=== PATIENT | female | born 1955 | race Caucasian/White ===

== ENCOUNTER 2021-07-15 07:11 | Day surgery (SDC) | payer SELFPAY ==
[~2021-07-15 07:11] MED LIST: Lactated Ringers 1,000 ML IV SCH; Lactated Ringers 1,000 ML ONE; Lidocaine 1%/Sod Bicarbonate in NS 8.4% 1 ML Syringe IDERM PRN; Midazolam 1 MG/ML 2 ML SDV ONE; Ondansetron 4 MG/2 ML SDV ONE; Propofol 200 MG/20 ML SDV ONE; Sodium Chloride 0.9% 10 ML Syringe FLUSH PRN; fentaNYL 250 MCG/5 ML SDV ONE
[2021-07-15] MEDS ORDERED: Bupivacaine 0.5% 30 ML SDV ONE (07:23)
--- NOTE | 2021-07-15 07:29 | PCM.PREANE ---
Preanesthetic Assessment - Anesthesia/Transfusion/Family Hx Anesthesia History: Prior Anesthesia Without Reaction Family History of Anesthesia Reaction: No Transfusion History: No Prior Transfusion(s) - Review of Systems General: Fatigue Pulmonary: Other (asthma, preop neb given) Cardiovascular: No Symptoms Neurological: No Symptoms Other: Reports: None - Physical Assessment NPO Status Date: 07/14/21 NPO Status Time: 23:45 Height: 1.57 m Weight: 74.1 kg ASA Class: 2 Mental Status: Alert & Oriented x3 Airway Class: Mallampati = 2 Dentition: Reports: Normal Dentition Thyro-Mental Finger Breadths: 3 Mouth Opening Finger Breadths: 3 ROM/Head Extension: Full Lungs: Clear to Auscultation, Normal Respiratory Effort Cardiovascular: Regular Rate, Regular Rhythm - Allergies Allergies/Adverse Reactions: Allergies Allergy/AdvReac Type Severity Reaction Status Date / Time animal dander Allergy Cannot Verified 07/14/21 12:53 Remember coconut oil Allergy Wheezing Verified 07/14/21 12:53 mold Allergy Difficulty Verified 07/14/21 12:53 Breathing pollen extracts Allergy Cannot Verified 07/14/21 12:53 Remember sesame oil Allergy Cannot Verified 07/14/21 12:53 Remember weed pollen Allergy Cannot Verified 07/14/21 12:53 Remember wheat Allergy Cannot Verified 07/14/21 12:53 Remember - Blood Blood Available: No Product(s) Available: None - Anesthesia Plan Pre-Op Medication Ordered: None - Acknowledgements Anesthesia Type Planned: General Anesthesia Pt an Appropriate Candidate for the Planned Anesthesia: Yes Alternatives and Risks of Anesthesia Discussed w Pt/Guardian: Yes Pt/Guardian Understands and Agrees with Anesthesia Plan: Yes PreAnesthesia Questionnaire HEENT History: Reports: Allergic Rhinitis, Cataract, Impaired Vision Other HEENT History: torn retina with repair Respiratory History: Reports: Asthma, SOB, Other (See Below) Other Respiratory History: Restricted Airways 2015 requiring use of inhalers Gastrointestinal History: Reports: Other (See Below) Other Gastrointestinal History: Umbilical Hernia Genitourinary History: Reports: Urinary Incontinence [employer]OT [employer]ER History: Reports: Other (See Below) Other OB/BYN History: Cystocele repair, Rectocele Repair, Bladder Sling - h/o pelvic floor relaxation with prolapse Musculoskeletal History: Reports: Osteoporosis Other Musculoskeletal History: compound fx to back Hematologic History: Reports: Anemia - Past Surgical History HEENT Surgical History: Reports: Cataract Surgery, Laser Surgery, Other (See Below) Other HEENT Surgeries/Procedures: YAG lasers after cataract sx, retina repair Cardiovascular Surgical History: Reports: None Respiratory Surgical History: Reports: None GI Surgical History: Reports: Appendectomy, Cholecystectomy Endocrine Surgical History: Reports: None Musculoskeletal Surgical History: Reports: None - SUBSTANCE USE Tobacco Use Status *Q: Never Tobacco User Recreational Drug Use History: No - HOME MEDS Home Medications: Home Meds Albuterol Sulfate [Albuterol Sulfate HFA] 1 inh INH ASDIRECTED 07/15/15 [History] Fluticasone/Salmeterol [Advair 100-50] 1 puff INH ASDIRECTED 07/15/15 [History] estradioL [Vagifem] 1 tab VAG ASDIRECTED 07/15/15 [History] ondansetron HCL [Zofran] 1 tab PO ASDIRECTED PRN 07/15/15 [History] polyethylene glycoL 3350 [MiraLAX] 1 packet PO ASDIRECTED 07/15/15 [History] - CURRENT (IN HOUSE) MEDS Current Meds: Current Medications Lactated Ringer's (Ringers, Lactated) 1,000 mls @ 125 mls/hr IV ASDIRECTED MEGHANN Stop: 07/15/21 23:00 Lidocaine/Sodium Bicarbonate (Lidocaine 1%/Sod Bicarbonate In Ns 8.4% 1 Ml Syringe) 0.25 ml IDERM ONETIME PRN PRN Reason: Prior to IV Start Stop: 07/15/21 18:00 Sodium Chloride (Sodium Chloride 0.9% 10 Ml Syringe) 10 ml FLUSH ASDIRECTED PRN PRN Reason: Keep Vein Open Stop: 07/15/21 18:00 Discontinued Medications Fentanyl (Fentanyl 250 Mcg/5 Ml Sdv) Confirm Administered Dose 250 mcg .ROUTE .STK-MED ONE Stop: 07/15/21 07:12 Lactated Ringer's (Ringers, Lactated) Confirm Administered Dose 1,000 mls @ as directed .ROUTE .STK-MED ONE Stop: 07/15/21 07:11 Midazolam HCl (Midazolam 1 Mg/Ml 2 Ml Sdv) Confirm Administered Dose 2 mg .ROUTE .STK-MED ONE Stop: 07/15/21 07:12 Ondansetron HCl (Ondansetron 4 Mg/2 Ml Sdv) Confirm Administered Dose 4 mg .ROUTE .STK-MED ONE Stop: 07/15/21 07:11 Propofol (Propofol 200 Mg/20 Ml Sdv) Confirm Administered Dose 200 mg .ROUTE .STK-MED ONE Stop: 07/15/21 07:11
[2021-07-15] MEDS ORDERED: Bupivacaine 0.5%/EPINEPHrine 1:200,000 50 ML MDV ONE (07:30)
[2021-07-15] MEDS ORDERED: Scopolamine 1.5 MG Transdermal Patch TRDERM ONE (07:35)
[2021-07-15] MEDS ORDERED: Albuterol 0.083% 2.5 MG/3 ML Neb Soln NEB ONE (07:35)
[2021-07-15] MEDS ORDERED: Rocuronium 50 MG/5 ML Vial ONE (07:41)
[2021-07-15] MEDS ORDERED: Dexamethasone 4 MG/ML 5 ML MDV ONE (08:12)
[2021-07-15] MEDS ORDERED: HYDROmorphone 0.5 MG/0.5 ML Syringe IVPUSH PRN (08:27)
[2021-07-15] MEDS ORDERED: Ondansetron 4 MG/2 ML SDV IVPUSH PRN (08:27)
[2021-07-15] MEDS ORDERED: fentaNYL 100 MCG/2 ML SDV IVPUSH PRN (08:27)
--- NOTE | 2021-07-15 09:49 | PCM.POSTAN ---
POST ANESTHESIA ASSESSMENT - MENTAL STATUS Mental Status: Alert, Oriented - RESPIRATORY Respiratory Status: Respiratory Rate WNL, Airway Patent, O2 Saturation Stable, Supplemental Oxygen - CARDIOVASCULAR CV Status: Pulse Rate WNL, Blood Pressure Stable - GASTROINTESTINAL GI Status: No Symptoms - PAIN Pain Score: 3 - POST OP HYDRATION Hydration Status: Adequate & Stable
[2021-07-15] MEDS ORDERED: oxyCODONE 5 MG Tab PO PRN (10:35)
--- NOTE | 2021-07-15 10:36 | PCM.PRNOTE ---
- Free Text/Narrative Note: Date: 07/15/2021 Operation: open incisional hernia repair with intraperitoneal coated permanent mesh Indication: symptomatic incisional hernia at umbilicus Surgeon: Ceasar Norman MD Antibiotic: 2 g ancef IV pre-incision EBL: 10 cc DVT Ppx: SCDs Specimen: none Findings: 3 x 3 cm midline fascial defect with large hernia sac.Primary fascial closure incorporated an intraperitoneal circular 8 cm diameter coated permanent Ventralite mesh. Detailed Report: The patient was taken to the operating room and placed in supine position. Timeout was performed and general endotracheal anesthesia was initiated. The abdomen was prepped and draped in usual sterile fashion. A 7 cm midline incision about the umbilicus was made using a 10 blade scalpel after injecting 10 cc of 0.5% Marcaine with epinephrine intradermally. Dissection was carried down sharply to subcutaneous tissue and the hernia sac was evident inferior to the umbilicus. The hernia sac was from surrounding subcutaneous fat. The sac was then grasped and elevated, and ensuring that no viscera was adherent to the peritoneum, scissors were used to sharply incise the sac and enter the peritoneal cavity. Once the sac was opened, the extent of the hernia sac was evident, and the palpable edges of the fascia were delineated. There were no adhesions to the sac or anterior abdominal wall. The hernia sac was dissected free and amputated at the level of the abdominal wall fascia. The fascial defect measured approximately 3 x 3 cm. An 8 cm circular coated permanent mesh was introduced into the field. 0 PDS suture was placed at the superior and inferior aspects of the fascial defect, and suture was passed through the mesh leaflets of the Ventralite patch. The mesh was placed in proper position intraperitoneally, and the fascia was closed primarily with a running 0 PDS sutures run from inferior and superior to the midportion of the incision, catching the leaflets of the mesh along the way. The sutures were then tied down to complete recreation of the linea alba. Subcutaneous tissue was reapproximated with several interrupted Vicryl sutures, and skin was closed with running subcuticular Vicryl suture. An additional 20 cc of 0.5% Marcaine with epinephrine had been used for local anesthetic at the level of peritoneum and fascia. The wound was dressed with Dermabond. The patient tolerated the procedure well.
[2021-07-15] MEDS ORDERED: Ketorolac 15 MG/ML SDV IVPUSH ONE (11:00)
[2021-07-15] MEDS ORDERED: ceFAZolin 1 GM Vial ONE (12:34)
--- NOTE | 2021-07-15 13:35 | PCM48HPAN ---
Post Anesthesia Note - EVALUATION WITHIN 48HRS OF ANESTHETIC Vital Signs in Normal Range: Yes Patient Participated in Evaluation: Yes Respiratory Function Stable: Yes Airway Patent: Yes Cardiovascular Function Stable: Yes Hydration Status Stable: Yes Pain Control Satisfactory: Yes Nausea and Vomiting Control Satisfactory: Yes Mental Status Recovered: Yes Vital Signs: Last Vital Signs Temp 36.3 C 07/15/21 10:25 Pulse 62 07/15/21 10:25 Resp 13 07/15/21 10:25 BP 134/68 07/15/21 10:25 Pulse Ox 100 07/15/21 10:25
[2021-07-15 16:22] VITALS: BP 110/65; PULSE 70
== END 2021-07-15 13:01 | disposition home or self-care (01) ==
LOC: JD.SDS 07:11
PROVIDERS: ATTEND Surgery
DX: K43.2 Incisional hernia without obstruction or gangrene (principal); J45.909 Unspecified asthma, uncomplicated; Z91.011 Allergy to milk products; Z91.012 Allergy to eggs; Z91.02 Food additives allergy status; Z79.899 Other long term (current) drug therapy; Z98.890 Other specified postprocedural states; Z90.49 Acquired absence of other specified parts of digestive tract
CPT/HCPCS: 49560; 49568; A9270; J0690; J1100; J1885; J2250; J2370; J2405; J2704; J2710; J3010; J3490; J7120; 00750; C1781